=== PATIENT | male | born 2000 | race Caucasian/White ===

== ENCOUNTER 2020-04-05 21:45 | Emergency (ER) | payer OTHER ==
[~2020-04-05] VITALS: Ht 175.3 cm; Wt 67.6 kg
[2020-04-05 21:52] VITALS: Ht 175.3 cm; Wt 67.6 kg
[2020-04-05 23:05] VITALS: BP 126/76
== END 2020-04-05 23:05 | disposition home or self-care (01) ==
LOC: ED 21:45
DX: F41.9 Anxiety disorder, unspecified (principal); J45.909 Unspecified asthma, uncomplicated